=== PATIENT | male | born 1985 | race Caucasian/White ===

== ENCOUNTER 2018-02-04 15:09 | Inpatient (IN) | payer MEDICAID ==
[~2018-02-04] VITALS: Ht 180.3 cm; Wt 84.1 kg
[2018-02-04 16:32] VITALS: BP 129/72
[2018-02-04 16:51] VITALS: BP 129/72
== END 2018-02-04 18:24 | disposition left against medical advice (07) | DRG 894 ==
LOC: 4E 15:09 → 5E 16:45
DX: F11.23 Opioid dependence with withdrawal (principal); Z53.21 Procedure and treatment not carried out due to patient leaving prior to being seen by health care provider